=== PATIENT | male | born 1960 | race Caucasian/White ===

== ENCOUNTER 2018-02-02 20:14 | Emergency (ER) | payer SELFPAY ==
[2018-02-02] MEDS ORDERED: DIAZEPAM 5 MG TABLET PO ONE (20:34)
[2018-02-02] MEDS ORDERED: KETOROLAC TROMETHAMINE 60 MG/2 ML SDV IM ONE (20:35)
--- NOTE | 2018-02-02 20:37 | ER Document Report ---
ED Medical Screen (RME) - General Chief Complaint: Low Back Pain Stated Complaint: BACK PAIN Time Seen by Provider: 02/02/18 20:34 Notes: RAPID MEDICAL EVALUATION DISCLOSURE I have seen this patient as part of a Rapid Medical Evaluation and, if applicable, placed any initially appropriate orders. The patient will be seen and fully evaluated, including a full history and physical exam, by a provider ( in Main ED or Fast Track) when a room becomes available. 57-year-old male here with complaints of severe low back pain ongoing for the past few days. Pain started immediately after bending over to pick something up. Pain is worse with movement. Pain is improved with minimizing movement. He has been taking some reqm-ldt-nmdokbr medication with no relief. He denies any numbness tingling weakness IV drug use incontinence retention. He denies any previous history of low back pain. EXAM There is mild bilateral lumbar paraspinal muscle TTP No midline spine tenderness or step-off Strength 5/5 with intact sensation BLEs TRAVEL OUTSIDE OF THE [place] IN LAST 30 DAYS: No - Related Data Allergies/Adverse Reactions: acetaminophen [From Vicodin] Allergy (Verified 02/02/18 20:18) hydrocodone [From Vicodin] Allergy (Verified 02/02/18 20:18) Past Medical History Renal/ Medical History: Denies: Hx Peritoneal Dialysis - Immunizations Hx Diphtheria, Pertussis, Tetanus Vaccination: Yes Physical Exam - Vital signs Vitals: Temp Pulse Resp BP Pulse Ox 98.6 F 85 16 164/84 H 98 02/02/18 20:21 02/02/18 20:21 02/02/18 20:21 02/02/18 20:21 02/02/18 20:21 Course - Vital Signs Vital signs: Temp Pulse Resp BP Pulse Ox 98.6 F 85 16 164/84 H 98 02/02/18 20:21 02/02/18 20:21 02/02/18 20:21 02/02/18 20:21 02/02/18 20:21 Doctor's Discharge - Discharge Referrals: LOCALMD,NO [Primary Care Provider] - Follow up as needed
--- NOTE | 2018-02-02 21:54 | RADIOLOGY REPORT (SQ) ---
EXAM DESCRIPTION: L SPINE WHOLE COMPLETED DATE/TIME: 02/02/2018 9:40 pm REASON FOR STUDY: c/o severe low back pain p bending over COMPARISON: None. NUMBER OF VIEWS: Five views including obliques. TECHNIQUE: AP, lateral, oblique, and sacral radiographic images acquired of the lumbar spine. LIMITATIONS: None. FINDINGS: MINERALIZATION: Normal. SEGMENTATION: Normal. No transitional anatomy. ALIGNMENT: Normal. VERTEBRAE: Anterior wedge compression fracture L1 appears old. DISCS: Multilevel osteophytes. Disc space narrowing L1-2. POSTERIOR ELEMENTS: Pedicles and facets are intact. No pars defect or posterior arch defects. HARDWARE: None in the spine. PARASPINAL SOFT TISSUES: Normal. PELVIS: Intact as visualized. No fractures or worrisome bone lesions. SI joints intact. OTHER: No other significant finding. IMPRESSION: Chronic appearing L1 compression fracture. Degenerative disc at L1-2. TECHNICAL DOCUMENTATION: JOB ID: [id number] [employer]- All Rights Reserved Reading location - IP/workstation name: [email or web address]
--- NOTE | 2018-02-02 22:58 | ER Document Report ---
ED General - General TRAVEL OUTSIDE OF THE [place] IN LAST 30 DAYS: No <KURT SOLOMON - Last Filed: 02/03/18 00:51> <DIONNE ADAMS - Last Filed: 02/03/18 19:01> - General Chief Complaint: Low Back Pain Stated Complaint: BACK PAIN Time Seen by Provider: 02/02/18 20:34 Notes: Patient is a 57-year-old male that comes emergency department for chief complaint of back pain. Patient is extremely sedated on my evaluation, he is arousable with loud noises and with sternal rub but otherwise is sleeping soundly. He will arouse enough to tell me yes or no answers but is unable to give me any other details at this time. Nurse reports that he was given Valium and Toradol in triage, and reported bending over and feeling pain in his back 1 week ago and has spent the majority of the past week in bed, brought in by his friend, no history of back problems, denied IV drug abuse or any chronic medical problems in triage. (KURT SOLOMON) - Related Data Allergies/Adverse Reactions: acetaminophen [From Vicodin] Allergy (Verified 02/02/18 20:18) hydrocodone [From Vicodin] Allergy (Verified 02/02/18 20:18) Past Medical History - Social History Smoking Status: Unknown if Ever Smoked Patient has suicidal ideation: No Patient has homicidal ideation: No Renal/ Medical History: Denies: Hx Peritoneal Dialysis - Immunizations Hx Diphtheria, Pertussis, Tetanus Vaccination: Yes <KURT SOLOMON - Last Filed: 02/03/18 00:51> - Social History Family History: Reviewed & Not Pertinent <DIONNE ADAMS - Last Filed: 02/03/18 19:01> - Vital signs Vitals: Temp Pulse Resp BP Pulse Ox 98.6 F 85 16 164/84 H 98 02/02/18 20:21 02/02/18 20:21 02/02/18 20:21 02/02/18 20:21 02/02/18 20:21 Course - Laboratory Result Diagrams: 02/02/18 23:05 02/02/18 23:05 <KURT SOLOMON - Last Filed: 02/03/18 00:51> - Laboratory Result Diagrams: 02/02/18 23:05 02/02/18 23:05 <DIONNE ADAMS - Last Filed: 02/03/18 19:01> - Re-evaluation Re-evalutation: 02/03/18 00:30 Patient is finally awake, alert, oriented. He tells me that 10 days ago his back started hurting after he had a bend over accident, he states he has never had trouble with his back before, he states for the past week he has spent most of his time in bed. He denies fever or chills, injury, back surgery, history of back problems. He denies fecal incontinence, urinary retention, numbness. He does however admit that he uses heroin, last use was 3 days ago. Concern for epidural abscess based on his presentation and history, however he does not have any neurological deficits. Additional labs ordered, will perform CAT scan with IV contrast of the lumbar spine since no MRI is available at this time. (KURT SOLOMON) Bedside disposition given by Kurt Solomon at 0715, patient remains afebrile, vitals stable and in no distress. Currently awaiting for MRI to be performed. 0900-per bedside nurse, Ada Jorgensen, MRI cannot be performed due to patient moving around and not lying still, this provider evaluated patient at bedside, I asked him why he could not lay still and he said he did not know, asked him if he was having some pain, he said he was, this provider order for him to get Benadryl as well as fentanyl for pain control and will reattempt MRI of lumbar spine. Patient was agreeable with this plan of care, vitals still remain afebrile and stable. Patient remains neurologically intact and no focal neurological deficits. Patient did use bathroom on his own, to get up on his own walk to the bathroom to urinate and walk back without any assistance. Patient's did go down for an MRI again being given Valium Benadryl to ease his pain. MRI of his spine showed he had pathologic L1 25% anterior compression fracture as well as multifocal decreased T1 and increased T2 marrow that was worrisome for myeloproliferative disease or myeloma, results were discussed with me by Dr. Sabra Almanzar, radiologist. Dr. Calloway that she is unable to do IV contrast due to patient moving too much during scan. discussed case with Dr. Prince Fernandez, ER supervising physician, Ivette Casey, oncologist for patient to be established there for management and further evaluation of possible myeloma. Dr. Joanna Casey at 1400 to consult findings MRI, pertinent laboratory and medical findings. Dr. Casey felt the patient be discharged home with pain control and outpatient and was concerned for myeloma being at top of the differential for severe back pain without focal neurological deficiencies. She will see him in the office for workup, advised patient to have myeloma panel started in the ER or in office. Like a skeletal a however is patient is on imaging at this time. Social work at that place. Patient stating "I am going to get to the oncologist's office" Marcial Ellis, social services designee, bedside at 1500 discussed and formulated plan of care. Please see her note. Patient discharged home with 15 tablets of oxycodone 5 mg tablets, narcotic database in [place] reviewed prior to narcotics being prescribed. The patient not to drive, drink alcohol or operate heavy machinery while taking this medication as it can cause sedation impairment of judgment. Advised to follow-up with Dr. Villalpando tomorrow to make an appointment to be seen in office. I have a low suspicion for expanding a ruptured abdominal aortic aneurysm, cauda equina syndrome, epidural mass abscess, osteomyelitis, immunosuppression cord compression retroperitoneal bleed, spinal epidural hematoma or herniated disc causing severe lumbar pain and due to having an plan of CARE RAD meet with oncologist, pain control and social work involvement, I feel that is appropriate for patient to be discharged home due to the fact he has no focal neurological deficits as well. I have reevaluated this patient multiple times and no significant life threatening changes, no signs of toxicity, sepsis or peritonitis are noted. The patient and I have discussed the diagnosis and risks , and we agree with discharging home and close follow-up. We also discussed returning to the Emergency Department immediately if new or worsening symptoms occur with the understanding that symptoms and presentations can change. At this time will discharge with return precautions and follow-up recommendations. Verbal discharge instructions given a the bedside and opportunity for questions given. We have discussed the symptoms which are most concerning (e.g. , saddle anesthesia, urinary or bowel incontinence or retention, changing or worsening pain) that necessitate immediate return. Medication warnings reviewed. All questions and concerns answered by this provider. Patient is in agreement with this plan and has verbalized understanding of return precautions and the need for primary care follow-up in the next 24-[address] Casey's office address, phone number and name on his discharge. discussed by this provider as well as the bedside nurse and handed to him upon discharge. Patient verbalized understanding of plan of care and agree with plan of care.All questions and concerns answered by this provider. Patient verbalized an understanding of plan of care and agree with plan of care. (DIONNE ADAMS) - Vital Signs Vital signs: Temp Pulse Resp BP Pulse Ox 98.0 F 62 16 190/72 H 98 02/03/18 13:11 02/03/18 13:11 02/03/18 13:11 02/03/18 13:11 02/03/18 13:11 - Laboratory Laboratory results interpreted by me: 02/02/18 02/02/18 02/02/18 23:05 23:05 23:05 ESR 23 H BUN 21 H Creatine Kinase 37 L C-Reactive Protein 62.7 H Discharge <KURT SOLOMON - Last Filed: 02/03/18 00:51> <DIONNE ADAMS - Last Filed: 02/03/18 19:01> - Discharge Clinical Impression: Abnormal magnetic resonance imaging of lumbar spine, pathological anterior co, Myeloproliferative disease Condition: Stable Disposition: HOME, SELF-CARE Instructions: Low Back Pain ([facility]), Compression Fracture of the Spine ([facility]), Stretching Exercises for the Back ([facility]), Back Injury with Fracture ([facility]) Additional Instructions: Your MRI of your lumbar spine was concerning for cancer. I have already spoke with the oncologist, Dr. Joanna Casey, who has already agreed to see you outpatient and labs were taken today formula to start the workup. Give her a call tomorrow morning to establish an appointment see consider in office within the next 1-2 days. He was given a prescription for [place], do not drive, operate heavy machinery or drink alcohol as it can cause sedation and may impair you. please follow up with your doctor as soon as possible regarding today's ED visit and your back pain. Return to the ED for worsening back pain, fever, weakness or numbness of either leg, or if you develop either (1) an inability to urinate or have bowel movements, or (2) loss of your ability to control your bathroom functions (if you start having "accidents"), or if you develop other new symptoms that concern you.concern you. Return immediately for any new or worsening symptoms. Follow up with primary care provider, call tomorrow to make followup appointment. Prescriptions: Oxycodone HCl [Oxycontin Ir 5 Mg Tablet] 1 - 2 mg PO Q4HP PRN #15 tablet PRN Reason: For Pain Referrals: LOCAL,NO [NO LOCAL MD] - Follow up as needed IVETTE CASEY MD [ACTIVE STAFF] - Follow up tomorrow BIRGIT PARKER MD [ACTIVE STAFF] - Follow up in 3-5 days
[2018-02-02 23:39] LABS: ANION GAP 12 (5-19); BLOOD UREA NITROGEN 21 mg/dL (7-20); CALCIUM 9.5 mg/dL (8.4-10.2); CARBON DIOXIDE 29 mmol/L (22-30); CHLORIDE 102 mmol/L (98-107); CREATINE KINASE 37 U/L (55-170); GLUCOSE 92 mg/dL (75-110); POTASSIUM 4.7 mmol/L (3.6-5.0); SODIUM 142.9 mmol/L (137-145)
[2018-02-03 00:45] LABS: ABSOLUTE EOSINOPHILS # (AUTO) 0.1 10^3/uL (0.0-0.6); ABSOLUTE LYMPHOCYTES (AUTO) 1.1 10^3/uL (0.5-4.7); ABSOLUTE MONOCYTES (AUTO) 0.8 10^3/uL (0.1-1.4); ABSOLUTE NEUT (AUTO) 6.4 10^3/uL (1.7-8.2); BASOPHILS % (AUTO) 0.5 % (0-2); EOSINOPHILS % (AUTO) 1.5 % (0-6); HEMATOCRIT 47.6 % (37.9-51.0); HEMOGLOBIN 16.2 g/dL (13.5-17.0); LYMPHOCYTES % (AUTO) 13.1 % (13-45); MEAN CORPUSCULAR HEMOGLOBIN 29.9 pg (27.0-33.4); MEAN CORPUSCULAR VOLUME 88 fl (80-97); MONOCYTES % (AUTO) 9.7 % (3-13); PLATELET COUNT 251 10^3/uL (150-450); RED BLOOD COUNT 5.42 10^6/uL (4.35-5.55); RED CELL DISTRIBUTION WIDTH 13.1 % (11.5-14.0); SEGMENTED NEUTROPHILS % (AUTO) 75.2 % (42-78); TOTAL CELLS COUNTED % (AUTO) 100 %; WHITE BLOOD COUNT 8.5 10^3/uL (4.0-10.5)
[2018-02-03 01:24] LABS: ERYTHROCYTE SEDIMENTATION RATE 23 mm/hr (0-20)
--- NOTE | 2018-02-03 02:33 | RADIOLOGY REPORT (SQ) ---
EXAM DESCRIPTION: CT LUMBAR SPINE WITH IV CONTRAST COMPLETED DATE/TME: 02/03/2018 00:31 CLINICAL HISTORY: 57 years, Male, severe lower back pain, IV drug abuse history. BUN 22 CREA 0.99 COMPARISON: None. TECHNIQUE: Axial CT images of the lumbar spine were obtained after administration of IV contrast. Sagittal and coronal reformats were performed. DLP 450 Images stored on PACS. All CT scanners at this facility use dose modulation, iterative reconstruction, and/or weight based dosing when appropriate to reduce radiation dose to as low as reasonably achievable (ALARA). [facility]: Dose Right [facility]: CareDose [facility]: Dose Right [facility]: Teradose 4D [facility]: VHT LIMITATIONS: None. FINDINGS: There are lucencies along the anterior aspect of the L1 vertebral body with a pathologic fracture with approximately 30% loss of anterior height. There is no significant retropulsion. There is mild disc space narrowing at L1-L2. No paraspinal fluid collection or abscess is identified. Remainder of the vertebral heights are maintained. Small anterior osteophytes are noted along the lumbar spine. The posterior elements are unremarkable. There is a 2 mm nonobstructing stone along the lower pole of the left kidney. IMPRESSION: Pathologic fracture of L1 with approximately 30% loss of vertebral height without significant retropulsion. Lucencies along the anterior aspect of the L1 vertebral body may be secondary to osteomyelitis/spondylodiscitis. An MRI may be useful in further evaluation. TECHNICAL DOCUMENTATION: Quality ID # [id number]: Final reports with documentation of one or more dose reduction techniques (e.g., Automated exposure control, adjustment of the mA and/or kV according to patient size, use of iterative reconstruction technique) 2010 [employer]- All Rights Reserved
[2018-02-03] MEDS ORDERED: VANCOMYCIN HCL INJ 1000 MG VIAL IV ONE (03:05)
[2018-02-03] MEDS ORDERED: CEFTRIAXONE INJ 1000 MG VIAL IV ONE (03:05)
[2018-02-03] MEDS ORDERED: DIPHENHYDRAMINE HCL 50 MG/ML VIAL IV ONE (09:10)
[2018-02-03] MEDS ORDERED: FENTANYL CITRATE INJ/PF 100 MCG/2 ML AMPUL IV ONE (09:11)
[2018-02-03] MEDS ORDERED: DIAZEPAM 5 MG TABLET PO ONE (11:03)
--- NOTE | 2018-02-03 12:48 | RADIOLOGY REPORT (SQ) ---
EXAM DESCRIPTION: MRI LUMBAR SPINE WITHOUT COMPLETED DATE/TIME: 02/03/2018 12:23 pm REASON FOR STUDY: Noted pathological fracture COMPARISON: CT lumbar spine 02/03/2018 Lumbar spine plain films 02/02/2018 TECHNIQUE: Sagittal and Axial imaging includes T1, T2, STIR and gradient echo sequences. Coronal T2/ HASTE imaging. LIMITATIONS: Motion artifact throughout the study Unable to give IV contrast per postcontrast T1 weighted images. Patient refused further imaging. FINDINGS: VISUALIZED UPPER ABDOMEN: Limited by motion artifact SEGMENTATION: No transitional anatomy. The lowest well-developed disc space is labeled L5-S1. ALIGNMENT: Anatomic. VERTEBRAE and BONE MARROW: Abnormal marrow signal throughout the L1 vertebral body, with mild anterio r 25% compression of L1. There is spotty decreased T1 and increased T2 marrow signal throughout the remainder of the bones in the field of view including the remainder of the lumbar spine, sacrum, and innominate bones. This is worrisome for spotty red marrow conversion. Myeloma or myeloproliferative process is suspected. This finding was discussed with Nany Burton in the emergency room DISC SIGNAL: Grossly normal. POSTERIOR ELEMENTS: Generally intact. No pars defect evident. HARDWARE: None in the spine. CORD AND CONUS: Normal in size and signal intensity. Conus at the L1 level. SOFT TISSUES: No aortic aneurysm seen. No bulky retroperitoneal adenopathy or mass. No paraspinal mas s or fluid. T12-L1: Unremarkable L1-L2: Mild diffuse posterior disc bulging is present, partly effacing the ventral thecal sac without significant central or foraminal encroachment. No paraspinal phlegmon. L2-L3: Mild bilateral facet hypertrophy. No central or foraminal encroachment. L3-L4: Mild posterior disc bulging. Mild bilateral facet hypertrophy. No central or foraminal encro achment. L4-L5: Mild posterior disc bulging, mild bilateral facet hypertrophy. No central or foraminal encroa chment. L5-S1: Mild facet hypertrophy. No central or foraminal encroachment SACRUM: Multiple foci of decreased T1 and increased T2 signal throughout the marrow worrisome for mye loproliferative process or myeloma. OTHER: No other significant findings. IMPRESSION: Pathologic L1 25% anterior compression fracture. Findings discussed with emergency room practitioner. TECHNICAL DOCUMENTATION: JOB ID: [id number] [employer]- All Rights Reserved Reading location - IP/workstation name: [email or web address]
[2018-02-03 17:05] VITALS: BP 145/70
[2018-02-04 17:38] LABS: FREE KAPPA LIGHT CHAINS 66.1 mg/L (3.3-19.4); FREE LAMBDA LIGHT CHAINS 37.6 mg/L (5.7-26.3)
[2018-02-05 07:11] LABS: KAPPA LAMBDA RATIO 1.76 (0.26-1.65)
[2018-02-06 14:50] LABS: A/G RATIO. 0.8 (0.7-1.7); ALBUMIN 3 2.9 g/dL (2.9-4.4); ALPHA-1-GLOBULIN 0.4 g/dL (0.0-0.4); GAMMA GLOBULINS 1.6 g/dL (0.4-1.8); IMMUNOGLOBULIN A 279 mg/dL (90-386); IMMUNOGLOBULIN G 1406 mg/dL (700-1600); IMMUNOGLOBULIN M 271 mg/dL (20-172); MONOCLONAL-SPIKE Not Observed g/dL (Not Observ)
== END 2018-02-03 18:16 | disposition home or self-care (01) ==
LOC: ER 20:14
DX: M48.56XA Collapsed vertebra, not elsewhere classified, lumbar region, initial encounter for fracture (principal); C94.6 Myelodysplastic disease, not elsewhere classified; Z88.5 Allergy status to narcotic agent; Z88.6 Allergy status to analgesic agent
CPT/HCPCS: 99284; 96375; 96365; 96366; 96367; 36415; 87040; 82550; 83615; 82232; 85025; 85652; 86140; 80048; 86320; 83883; 72148; 72110; 72132; J1200; J1885; J3010; J0696; J3370